=== PATIENT | female | born 1995 | race American Indian/Alaskan Native ===

== ENCOUNTER 2017-10-01 09:06 | Inpatient (IN) | payer MEDICAID ==
[2017-10-01] MEDS ORDERED: POLYCILLIN/NS 2 GM/100 ML 2 GM/100 ML BAG IV ONE (10:46)
[2017-10-01] MEDS ORDERED: PITOCin/NS 20 UNIT/1000ML DRIP 20,000 MILLIUNITS/1,000 ML BAG IV ONE (10:46)
[2017-10-01] MEDS ORDERED: MINERAL OIL ONE (10:47)
[2017-10-01] MEDS ORDERED: LACTATED RINGERS 1,000 ML ONE (10:47)
[2017-10-01 10:54] LABS: Hematocrit 35.4 % (30.3-42.9); Hemoglobin 11.5 gm/dl (10.1-14.3); Mean Platelet Volume 9.7 fl (6-12); Red Blood Count 4.58 M/mm3 (3.65-5.03); Red Cell Distribution Width 14.5 % (13.2-15.2)
[2017-10-01] MEDS ORDERED: LACTATED RINGERS 1,000 ML IV SCH ×2 (11:00→12:00)
[2017-10-01] MEDS ORDERED: POLYCILLIN/NS 2 GM/100 ML 2 GM/100 ML BAG IV SCH (11:00)
[2017-10-01] MEDS ORDERED: PITOCin/NS 20 UNIT/1000ML DRIP 20 UNITS/1,000 ML BAG IV SCH (11:00)
[2017-10-01] MEDS ORDERED: SUBLIMAZE ONE (11:11)
[2017-10-01] MEDS ORDERED: BRETHINE SUB-Q PRN (11:34)
[2017-10-01] MEDS ORDERED: XYLOCAINE 2% INFILTRATI ONE (11:34)
[2017-10-01] MEDS ORDERED: ePHEDrine SULFATE IV PRN (11:34)
[2017-10-01] MEDS ORDERED: MINERAL OIL PO PRN (11:34)
[2017-10-01] MEDS ORDERED: BRETHINE IVP PRN (11:34)
[2017-10-01] MEDS ORDERED: SUBLIMAZE IV ONE ×2 (11:40→12:00)
--- NOTE | 2017-10-01 11:41 | History and Physical Report ---
History of Present Illness Date of examination: 10/01/17 Date of admission: 10/01/17 09:30 Chief complaint: Painful contractions and rupture of membranes History of present illness: 22 yo AA fe DUSTIN 10/16/17, 37w6d (per pt) presents in spontaneous labor with SROM this am. records not available for review. Pt reports early and consistent care at [facility]. Reports positive chlamydia with neg LONNY in . She denies any medical complications, history of surgery, hypertension, GDM. States GBS is Negative. Past History Past Medical History: no pertinent history. denies: asthma Past Surgical History: no surgical history [facility] History: chlamydia (Reports treatment and Negative LONNY in ). denies: abnormal PAP smear, gonorrhea, hepatitis B, hepatitis C, herpes, HIV, syphilis, trichomonas Family/Genetic History: none Social history: no significant social history, single, lives with family, full code. denies: smoking, alcohol abuse, prescription drug abuse, IV drug use - Obstetrical History Expected Date of Delivery: 10/16/17 Actual Gestation: 37 Week(s) 6 Day(s) : 2 Para: 1 Hx # Term Pregnancies: 1 Number of Pregnancies: 0 Spontaneous Abortions: 0 Induced : 0 Number of Living Children: 1 Medications and Allergies Allergies Allergy/AdvReac Type Severity Reaction Status Date / Time No Known Allergies Allergy Unverified 12/21/15 15:37 Home Medications Medication Instructions Recorded Confirmed Last Taken Type Lidocain2.5%/Prilocai2.5% [Emla] 5 gm TP ONCE #1 tube 12/21/15 Unknown Rx Pnv No.95/Ferrous Fum/Folic AC 1 tab PO DAILY 12/21/15 12/21/15 12/20/15 23:00 History [ Vitamins Tablet] Active Meds: Active Medications Fentanyl (Sublimaze) 100 mcg IV ONCE ONE Stop: 10/01/17 12:01 Fentanyl (Sublimaze) 100 mcg IV ONCE ONE Stop: 10/01/17 11:41 Oxytocin/Sodium Chloride (Pitocin/Ns 20 Unit/1000ml Drip) 20 units in 1,000 mls @ 0 mls/hr IV DIRECT LORETA Ampicillin Sodium (Polycillin/Ns 2 Gm/100 Ml) 2 gm in 100 mls @ 100 mls/hr IV ONCE LORETA; Protocol Last Admin: 10/01/17 10:55 Dose: 100 mls/hr Lactated Ringer's (Lactated Ringers) 1,000 mls @ 125 mls/hr IV DIRECT LORETA Last Admin: 10/01/17 10:55 Dose: 125 mls/hr Review of Systems Cardiovascular: no chest pain, no shortness of breath Breasts: normal Gastrointestinal: no nausea, no vomiting, no diarrhea, no constipation Genitourinary: leakage of fluid, contractions Integumentary: no rash, no sores, no lesions - Vital Signs Vital signs: Vital Signs Pulse BP 81 119/84 10/01/17 09:35 10/01/17 09:35 Temp Pulse Resp BP Pulse Ox 97.6 F 81 16 119/84 10/01/17 10:48 10/01/17 09:35 10/01/17 10:48 10/01/17 09:35 - Physical Exam Breasts: Positive: normal Cardiovascular: Regular rate, Normal S1, Normal S2 Lungs: Positive: Clear to auscultation, Normal air movement Abdomen: Positive: normal appearance, soft, other (Gravid) Genitourinary (Female): Positive: normal external genitalia, normal perenium Vulva: both: normal Vagina: Positive: normal moisture (Large amt clear fluid noted on arrival) Uterus: Positive: enlarged (Gravid, S=D) Anus/Rectum: Positive: normal perianal skin Extremities: Positive: normal Deep Tendon Reflex Grade: Normal +2 - Obstetrical FHR: auscultation normal, category 1 Uterine Contraction Monitor Mode: External Cervical Dilatation: 8 Cervical Effacement Percentage: 90 station: -1 Uterine Contraction Frequency (min): 4-5 Uterine Contraction Pattern: Regular Uterine Tone Measurement Phase: Resting Uterine Contraction Intensity: Strong/Firm Results Result Diagrams: 10/01/17 Unknown Abnormal lab results 10/01/17 Range/Units Unknown MCV 77 L (79-97) fl MCH 25 L (28-32) pg All other labs normal. Assessment and Plan A: , DUSTIN 10/16/2017(per pt) Active labor GBS Negative per pt SROM clear fluid P: Admit to L&D Routine care GBS prophylaxis (records not available) Expect
[2017-10-01] MEDS ORDERED: BENADRYL PO PRN (12:16)
[2017-10-01] MEDS ORDERED: PHENERGAN PO PRN (12:16)
[2017-10-01] MEDS ORDERED: MILK OF MAGNESIA PO PRN (12:16)
[2017-10-01] MEDS ORDERED: TUCKS PAD TP PRN (12:16)
[2017-10-01] MEDS ORDERED: TYLENOL PO PRN (12:16)
[2017-10-01] MEDS ORDERED: ZOFRAN IV PRN (12:16)
[2017-10-01] MEDS ORDERED: DULCOLAX PR PRN (12:16)
[2017-10-01] MEDS ORDERED: LANSINOH TP PRN (12:16)
--- NOTE | 2017-10-01 12:22 | Procedure Note ---
OB Delivery Note - Delivery Date of Delivery: 10/01/17 (11:58) Surgeon: INES STEPHENS (KEN[place]) Estimated blood loss: 100cc - Vaginal Delivery presentation: vertex Delivery position: OA Intrapartum events: none Delivery induction: none Delivery monitor: external FHT, external uterine Route of delivery: (11:58) Delivery placenta: spontaneous (12:03) Delivery cord: 3 umbilical vessels Delivery laceration: 1st degree (small, left unrepaired) Anesthesia: intravenous Delivery comments: viable male , GEO position at 11:58. to mothers abdomen for skin to skin. Delayed cord clamping, cut by FOB. Cord blood collected. Spontaneous tripathi delivery of intact placenta at 12:03. 3VC. FF@U-2. Small first degree laceration left unrepaired. EBL 100ml. Mother and left in stable condition in L&D. - A at 1 minute: 8 at 5 minutes: 9 Infant Gender: Male (3294 grams, 7lbs 4oz,)
[2017-10-01] MEDS ORDERED: SODIUM CHLORIDE FLUSH SYRINGE 10 ML IV NR (13:00)
[2017-10-01] MEDS: NORCO 5/325 PO PRN ×2 (16:14→22:07)
[2017-10-01] MEDS: MOTRIN PO SCH ×2 (18:00→19:00)
[2017-10-02 01:31] LABS: Hematocrit 34.4 % (30.3-42.9); Hemoglobin 11.6 gm/dl (10.1-14.3)
[2017-10-02] MEDS: MOTRIN PO SCH ×3 (05:20→19:28)
--- NOTE | 2017-10-02 10:30 | Progress Note ---
Assessment and Plan A: PP Day #1 Stable P: Follow Routine Orders D/C Home in the AM RTO in 6 weeks Subjective - Subjective Date of service: 10/02/17 Patient reports: appetite normal, voiding normally, pain well controlled, flatus , ambulating normally : doing well Objective - Vital Signs Latest vital signs: Vital Signs Temp Pulse Resp BP BP Pulse Ox 10/02/17 08:55 97.6 F 57 L 18 97/56 98 10/02/17 05:58 18 10/02/17 00:00 98.7 F 77 18 112/69 10/01/17 23:02 70 100 10/01/17 22:57 66 98 10/01/17 22:52 78 98 10/01/17 22:47 66 96 10/01/17 22:42 67 97 10/01/17 22:37 72 99 10/01/17 22:34 70 129/80 10/01/17 22:32 71 98 10/01/17 22:27 82 98 10/01/17 22:22 86 100 10/01/17 22:17 57 L 86 10/01/17 22:12 91 H 98 10/01/17 22:11 85 78 L 10/01/17 22:07 77 99 10/01/17 22:02 75 98 10/01/17 21:57 72 96 10/01/17 19:30 98.6 F 66 18 117/78 10/01/17 16:14 16 10/01/17 14:15 97.8 F 54 L 16 103/53 10/01/17 12:47 98.1 F 16 10/01/17 10:48 97.6 F 16 Intake and Output 10/01/17 10/02/17 10/02/17 22:59 06:59 14:59 Intake Total 300 Output Total 700 Balance -700 300 Intake: Intake, Free Water 300 Output: Urine 700 Indwelling Catheter 700 Other: Total, Output Amount 700 - Exam Breasts: Present: normal Cardiovascular: Present: Regular rate Lungs: Present: Clear to auscultation, Normal air movement Abdomen: Present: normal appearance, soft, normal bowel sounds Uterus: Present: normal, firm, fundal height below umbilicus Extremities: Present: normal - Labs Labs: Abnormal lab results 10/01/17 Range/Units Unknown MCV 77 L (79-97) fl MCH 25 L (28-32) pg
--- NOTE | 2017-10-02 10:31 | Discharge Summary ---
Providers - Providers Date of Admission: 10/01/17 09:30 Date of discharge: 10/03/17 Attending physician: DARIUS HAWK MD Primary care physician: DARIUS HAWK MD Hospitalization Reason for admission: active labor Delivery: Episiotomy: none Laceration: 1st degree Other procedures: none complications: none Discharge diagnosis: IUP at term delivered [place] baby: male Condition at discharge: Good Disposition: DC-01 TO HOME OR SELFCARE Plan - Provider Discharge Summary Activity: routine Additional instructions: [] Smoking cessation referral if applicable(refer to patient education folder for contact #) [] Refer to [facility]'s [facility] Booklet Call your doctor immediately for: * Fever > 100.5 * Heavy vaginal bleeding ( >1 pad per hour) * Severe persistent headache * Shortness of breath * Reddened, hot, painful area to leg or breast * Drainage or odor from incision. * Keep incision clean and dry at all times and follow doctor's instructions regarding bathing/showering - Follow up plan Follow up: DARIUS HAWK MD [Primary Care Provider] - 6 Weeks
[2017-10-03] MEDS: MOTRIN PO SCH (04:22)
[2017-10-03] MEDS ORDERED: BOOSTRIX IM ONE (06:00)
[2017-10-03 13:44] VITALS: BP 112/64
== END 2017-10-03 12:30 | disposition home or self-care (01) | DRG 775 ==
LOC: TRG 09:06 → LD 09:30 → OB 14:58
PROVIDERS: ADMIT Obstetrics & Gynecology; ATTEND Obstetrics & Gynecology
PROC: 10E0XZZ Delivery of Products of Conception, External Approach (ICD-10-PCS; principal; 2017-10-01)
PROC: 3E0234Z Introduction of Serum, Toxoid and Vaccine into Muscle, Percutaneous Approach (ICD-10-PCS; 2017-10-03)
DX: O70.0 First degree perineal laceration during delivery (principal); Z3A.37 37 weeks gestation of pregnancy; Z37.0 Single live birth; Z23 Encounter for immunization
CPT/HCPCS: 36415; 85014; 85018; 85027; 86592; 86850; 86900; 86901; 87591; 90471; 90715; 99211; A6250; G0463; J0290; J2590; J3010; J7120

== ENCOUNTER 2020-01-14 01:23 | Inpatient (IN) | payer MEDICAID ==
[2020-01-14] MEDS ORDERED: TERBUTALINE 1 MG/1 ML INJ IVP PRN (01:39)
[2020-01-14] MEDS ORDERED: ePHEDrine SULFATE 50 MG/1 ML INJ IV PRN (01:39)
[2020-01-14] MEDS ORDERED: LIDOCAINE (2%) 20 MG/1 ML VIAL 20 ML MDV INFILTRATI ONE (01:39)
[2020-01-14] MEDS ORDERED: MINERAL OIL 30 ML ORAL LIQD PO PRN (01:39)
[2020-01-14] MEDS ORDERED: AMPICILLIN/NS 2 GM/100 ML 2 GM/100 ML BAG IV ONE (01:39)
[2020-01-14] MEDS ORDERED: TERBUTALINE 1 MG/1 ML INJ SUB-Q PRN (01:39)
[2020-01-14] MEDS ORDERED: LACTATED RINGERS 1,000 ML ONE (01:40)
[2020-01-14] MEDS ORDERED: OXYTOCIN 10 UNIT/1 ML INJ ONE (01:49)
[2020-01-14] MEDS ORDERED: OXYTOCIN 20 UNIT/1000ML DRIP 20 UNITS/1,000 ML BAG IV SCH ×2 (02:00→03:00)
[2020-01-14] MEDS ORDERED: LACTATED RINGERS 1,000 ML IV SCH (02:00)
--- NOTE | 2020-01-14 02:40 | History and Physical Report ---
History of Present Illness Date of examination: 01/14/20 Date of admission: 01/14/20 01:47 Chief complaint: contractions History of present illness: 24 yo at 39w0d with PNC at [facility], otherwise uncomplicated, presenting with contractions and rupture of membranes. Thin meconium. + movements. No vaginal bleeding. No PIH symptoms. Past History Past Medical History: no pertinent history Past Surgical History: no surgical history Family/Genetic History: none Social history: no significant social history - Obstetrical History : 3 Para: 2 Hx # Term Pregnancies: 2 Number of Living Children: 2 Medications and Allergies Allergies Allergy/AdvReac Type Severity Reaction Status Date / Time No Known Allergies Allergy Unverified 12/21/15 15:37 Home Medications Medication Instructions Recorded Confirmed Last Taken Type Lidocain2.5%/Prilocai2.5% [Emla] 5 gm TP ONCE #1 tube 12/21/15 10/01/17 Unknown Rx Pnv No.95/Ferrous Fum/Folic AC 1 tab PO DAILY 12/21/15 10/01/17 1 Day Ago History [ Vitamins Tablet] ~09/30/17 Ibuprofen [Motrin] 800 mg PO Q8HR #30 tablet 04/05/18 Unknown Rx Sulfamethoxazole/Trimethoprim 1 each PO BID #20 tablet 04/05/18 Unknown Rx [Bactrim DS TAB] Active Meds: Active Medications Ephedrine Sulfate (Ephedrine Sulfate) 10 mg IV Q2M PRN PRN Reason: Hypotension Oxytocin/Sodium Chloride (Pitocin/Ns 20 Unit/1000ml Drip) 20 units in 1,000 mls @ 125 mls/hr IV DIRECT LORETA Last Admin: 01/14/20 02:16 Dose: 125 mls/hr Documented by: Lactated Ringer's (Lactated Ringers) 1,000 mls @ 125 mls/hr IV DIRECT LORETA Ampicillin Sodium (Ampicillin/Ns 1 Gm/50 Ml) 1 gm in 50 mls @ 100 mls/hr IV Q4HR LORETA; Protocol Mineral Oil (Mineral Oil) 30 ml PO QHS PRN PRN Reason: Constipation Last Admin: 01/14/20 02:26 Dose: 30 ml Documented by: Terbutaline Sulfate (Brethine) 0.25 mg SUB-Q ONCE PRN PRN Reason: Hyperstimulation/Hypertonicity Terbutaline Sulfate (Brethine) 0.25 mg IVP ONCE PRN PRN Reason: Hyperstimulation/Hypertonicity Review of Systems All systems: negative (expect HPI) - Vital Signs Vital signs: Vital Signs Temp Pulse BP Pulse Ox 97.9 F 88 121/75 100 01/14/20 01:43 01/14/20 01:43 01/14/20 01:43 01/14/20 01:43 Temp Pulse Resp BP Pulse Ox 97.9 F 101 H 121/75 97 01/14/20 01:43 01/14/20 02:02 01/14/20 01:43 01/14/20 02:02 - Physical Exam Breasts: Positive: deferred Cardiovascular: Regular rate Abdomen: Positive: normal appearance, other (gravid) Genitourinary (Female): Positive: normal external genitalia Vulva: both: normal Vagina: Positive: normal moisture Uterus: Positive: other (gravid) - Obstetrical FHR: category 1 Uterine Contraction Monitor Mode: External Cervical Dilatation: 9 Cervical Effacement Percentage: 90 station: +1 Uterine Contraction Pattern: Regular Uterine Contraction Intensity: Strong/Firm Results All other labs normal. Assessment and Plan - Patient Problems (1) Active labor at term Current Visit: No Status: Acute Plan to address problem: --Augmentation of labor as indicated --Obtain New OB labs given no records --Amp given GBS unknown --Anticipate
[2020-01-14] MEDS ORDERED: PROMETHAZINE 25 MG TAB PO PRN (02:45)
[2020-01-14] MEDS ORDERED: PROMETHAZINE 25 MG RECT SUPP PR PRN (02:45)
[2020-01-14] MEDS ORDERED: oxyCODONE /ACETAMINOPHEN 5-325MG TAB PO PRN (02:45)
[2020-01-14] MEDS ORDERED: HYDROCORTISONE 25 MG RECTAL SUPP PR PRN (02:45)
[2020-01-14] MEDS ORDERED: LANOLIN/ZINC/DIMETHICONE (LANSINOH) 7 GM TP PRN (02:45)
[2020-01-14] MEDS ORDERED: MAGNESIUM HYDROXIDE (MOM) ORAL LIQD UDC PO PRN (02:45)
[2020-01-14] MEDS ORDERED: WITCH HAZEL/ GLYCERIN PAD TP PRN (02:45)
[2020-01-14] MEDS ORDERED: diphenhydrAMINE 25 MG CAP PO PRN (02:45)
[2020-01-14] MEDS ORDERED: ONDANSETRON 4 MG/2 ML INJ IV PRN (02:45)
[2020-01-14] MEDS ORDERED: ACETAMINOPHEN 325 MG TAB PO PRN (02:45)
--- NOTE | 2020-01-14 02:51 | Procedure Note ---
OB Delivery Note - Delivery Date of Delivery: 01/14/20 Surgeon: MARIA DEL CARMEN TOMLIN JR Estimated blood loss: 200cc - Vaginal Delivery position: OA Intrapartum events: none Delivery induction: AROM Delivery augmentation: rupture of membranes Delivery monitor: external FHT Route of delivery: Delivery placenta: spontaneous Episiotomy: none Delivery laceration: 2nd degree Delivery repair: chromic Delivery comments: Girl, 8/9 APGARS, 2975g to , EBL 200 cc, Lac 2nd degree perineal repaired with lidocaine and 2-0 chromic - A at 1 minute: 8 at 5 minutes: 9 Infant Gender: Female
[2020-01-14 03:42] LABS: Hematocrit 30.1 % (30.3-42.9); Hemoglobin 9.7 gm/dl (10.1-14.3); Mean Corpuscular HGB Conc 32 % (30-34); Mean Corpuscular Volume 71 fl (79-97); Platelet Count 180 K/mm3 (140-440); Red Blood Count 4.26 M/mm3 (3.65-5.03); Red Cell Distribution Width 17.4 % (13.2-15.2)
[2020-01-14 03:43] LABS: Hematocrit 29.8 % (30.3-42.9); Hemoglobin 9.5 gm/dl (10.1-14.3)
[2020-01-14] MEDS: IBUPROFEN 600 MG TAB PO SCH ×3 (05:17→17:23)
[2020-01-14] MEDS: SENNOSIDES/DOCUSATE SODIUM 8.6/50 MG TAB PO SCH ×2 (05:17→17:25)
[2020-01-14] MEDS ORDERED: AMPICILLIN/NS 1 GM/50 ML 1 GM/50 ML BAG IV SCH (05:40)
[2020-01-14] MEDS: DOCUSATE SODIUM 100 MG CAP PO SCH ×2 (10:36→21:45)
[2020-01-15] MEDS: IBUPROFEN 600 MG TAB PO SCH ×3 (00:06→11:13)
[2020-01-15] MEDS: SENNOSIDES/DOCUSATE SODIUM 8.6/50 MG TAB PO SCH (05:22)
[2020-01-15] MEDS ORDERED: DIPHtheria,PERTUSSIS(ACELL),TETANUS VACCINE/PF 0.5 ML VIAL IM ONE (06:00)
[2020-01-15] MEDS ORDERED: FERROUS SULFATE 325 MG TAB PO SCH (10:00)
[2020-01-15] MEDS ORDERED: medroxyPROGESTERone ACETATE 150 MG/ML SYRINGE IM NR (10:32)
--- NOTE | 2020-01-15 10:32 | Progress Note ---
Assessment and Plan A: PP Day #1 Asymptomatic Anemia P: Follow Routine Orders FeSO4 325mg PO BID Depo Provera 150mg IM prior to discharge D/C home in the AM RTO in 6 Weeks Subjective - Subjective Date of service: 01/15/20 Patient reports: appetite normal, voiding normally, pain well controlled, flatus, bowel movement, ambulating normally : doing well, bottle feeding (and ) Objective - Vital Signs Latest vital signs: Vital Signs Temp Pulse Resp BP BP Pulse Ox 01/15/20 08:51 98.0 F 49 L 18 102/61 99 01/15/20 06:22 18 01/15/20 05:22 18 01/15/20 01:06 18 01/15/20 00:06 18 01/15/20 00:00 98.8 F 61 18 105/68 01/14/20 19:30 98.6 F 69 16 112/70 01/14/20 15:51 98.4 F 61 20 106/68 100 01/14/20 12:15 97.9 F 56 L 20 108/63 99 Intake and Output 01/14/20 01/15/20 01/15/20 22:59 06:59 14:59 Intake Total 120 240 Balance 120 240 Intake: Oral 120 240 Other: Total, Intake Amount 120 240 # Voids Void 1 1 - Exam Breasts: Present: normal Cardiovascular: Present: Regular rate Lungs: Present: Clear to auscultation, Normal air movement Abdomen: Present: normal appearance, soft, normal bowel sounds Uterus: Present: normal, firm, fundal height below umbilicus Extremities: Present: normal
--- NOTE | 2020-01-15 10:34 | Discharge Summary ---
Providers - Providers Date of Admission: 01/14/20 01:47 Date of discharge: 01/16/20 Attending physician: MARIA DEL CARMEN TOMLIN JR, MD Primary care physician: MARIA DEL CARMEN TOMLIN JR, MD Hospitalization Reason for admission: active labor, rupture of membranes Delivery: Episiotomy: none Laceration: 2nd degree Other procedures: none complications: none Discharge diagnosis: IUP at term delivered baby: female Condition at discharge: Good Disposition: DC-01 TO HOME OR SELFCARE Plan - Provider Discharge Summary Activity: routine, no sex for 6 weeks, no heavy lifting 4 weeks, no strenuous exercise Diet: routine Instructions: routine Additional instructions: [] Smoking cessation referral if applicable(refer to patient education folder for contact #) [] Refer to [facility] Booklet Call your doctor immediately for: * Fever > 100.5 * Heavy vaginal bleeding ( >1 pad per hour) * Severe persistent headache * Shortness of breath * Reddened, hot, painful area to leg or breast * Drainage or odor from incision. * Keep incision clean and dry at all times and follow doctor's instructions regarding bathing/showering - Follow up plan Follow up: MARIA DEL CARMEN TOMLIN JR, MD [Primary Care Provider] - 6 Weeks
[2020-01-15] MEDS: DOCUSATE SODIUM 100 MG CAP PO SCH (11:12)
[2020-01-15 18:24] VITALS: BP 115/63
== END 2020-01-15 17:00 | disposition home or self-care (01) | DRG 775 ==
LOC: TRG 01:23 → APU 01:24 → TRG 01:46 → LD 01:47 → OB 04:40
PROVIDERS: ADMIT Obstetrics & Gynecology; ATTEND Obstetrics & Gynecology
PROC: 10E0XZZ Delivery of Products of Conception, External Approach (ICD-10-PCS; principal; 2020-01-14)
PROC: 0KQM0ZZ Repair Perineum Muscle, Open Approach (ICD-10-PCS; 2020-01-14)
PROC: 10907ZC Drainage of Amniotic Fluid, Therapeutic from Products of Conception, Via Natural or Artificial Opening (ICD-10-PCS; 2020-01-14)
DX: O99.02 Anemia complicating childbirth (principal); Z3A.39 39 weeks gestation of pregnancy; Z37.0 Single live birth; O70.1 Second degree perineal laceration during delivery; D64.9 Anemia, unspecified
CPT/HCPCS: 36415; 85014; 85018; 85027; 86592; 86706; 86762; 86850; 86900; 86901; 87806; 90471; 90715; G0378; J0290; J1050; J2590; J7120

== ENCOUNTER 2021-07-17 15:02 | Observation (INO) | payer MEDICAID ==
[2021-07-17] MEDS ORDERED: SODIUM CHLORIDE 0.9% 1000 ML 1,000 ML IV ONE (15:11)
[2021-07-17 16:00] LABS: Basophils # (Auto) 0.1 K/mm3 (0.0-0.1); Basophils % (Auto) 0.5 % (0.0-1.8); Eosinophils % (Auto) 0.4 % (0.0-4.3); Hematocrit 22.8 % (30.3-42.9); Hemoglobin 7.4 gm/dl (10.1-14.3); Lymphocytes # (Auto) 1.5 K/mm3 (1.2-5.4); Lymphocytes % (Auto) 15.1 % (13.4-35.0); Mean Corpuscular HGB Conc 32 % (30-34); Mean Corpuscular Volume 74 fl (79-97); Monocytes # (Auto) 0.3 K/mm3 (0.0-0.8); Platelet Count 198 K/mm3 (140-440)
[2021-07-17 16:01] LABS: Red Cell Distribution Width 20.8 % (13.2-15.2)
[2021-07-17 16:09] LABS: INR 0.98 (0.87-1.13)
[2021-07-17 16:20] LABS: Blood Urea Nitrogen 10 mg/dL (7-17); Calcium 8.2 mg/dL (8.4-10.2); Hemolysis Index 6
[2021-07-17 16:21] LABS: BUN/Creatinine Ratio 20
--- NOTE | 2021-07-17 18:57 | Emergency Department Report ---
ED Female HPI - General Chief complaint: Vaginal Bleeding Stated complaint: HEMORRHAGIC SHOCK Time Seen by Provider: 07/17/21 15:11 Source: patient, EMS Mode of arrival: Stretcher Limitations: No Limitations - History of Present Illness MD Complaint: vaginal bleeding -: Gradual, days(s) Location: suprapubic Radiation: non-radiating Severity scale (0 -10): 3 Quality: aching Consistency: constant - Related Data Home Medications Medication Instructions Recorded Confirmed Last Taken No Known Home Medications [No 01/14/20 01/14/20 Unknown Reported Home Medications] Allergies Allergy/AdvReac Type Severity Reaction Status Date / Time No Known Allergies Allergy Unverified 12/21/15 15:37 ED Review of Systems ROS: Stated complaint: HEMORRHAGIC SHOCK Other details as noted in HPI Constitutional: denies: chills, fever Eyes: denies: eye pain, eye discharge, vision change ENT: denies: ear pain, throat pain Respiratory: denies: cough, shortness of breath, wheezing Cardiovascular: denies: chest pain, palpitations Endocrine: no symptoms reported Gastrointestinal: denies: abdominal pain, nausea, diarrhea Genitourinary: denies: urgency, dysuria, discharge Musculoskeletal: denies: back pain, joint swelling, arthralgia Skin: denies: rash, lesions Neurological: denies: headache, weakness, paresthesias Psychiatric: denies: anxiety, depression Hematological/Lymphatic: denies: easy bleeding, easy bruising ED Past Medical Hx - Past Medical History Hx Hypertension: No Hx Congestive Heart Failure: No Hx Diabetes: No Hx Deep Vein Thrombosis: No Hx Renal Disease: No Hx Sickle Cell Disease: No Hx Seizures: No Hx Asthma: No Hx COPD: No Hx HIV: No - Social History Smoking Status: Unknown if ever smoked - Medications Home Medications: Home Medications Medication Instructions Recorded Confirmed Last Taken Type No Known Home Medications [No 01/14/20 01/14/20 Unknown History Reported Home Medications] ED Physical Exam - General Limitations: No Limitations General appearance: in no apparent distress, other (thin) - Head Head exam: Present: atraumatic, normocephalic - Eye Eye exam: Present: other (pale ) - ENT ENT exam: Present: mucous membranes moist - Neck Neck exam: Present: normal inspection - Respiratory Respiratory exam: Present: normal lung sounds bilaterally. Absent: respiratory distress - Cardiovascular Cardiovascular Exam: Present: regular rate, normal rhythm. Absent: systolic murmur, diastolic murmur, rubs, gallop - GI/Abdominal GI/Abdominal exam: Present: soft, normal bowel sounds - External exam: Present: normal external exam, bleeding Speculum exam: Present: vaginal bleeding - Extremities Exam Extremities exam: Present: normal inspection - Back Exam Back exam: Present: normal inspection - Neurological Exam Neurological exam: Present: alert, oriented X3 - Psychiatric Psychiatric exam: Present: normal affect, normal mood - Skin Skin exam: Present: warm, dry, intact, normal color. Absent: rash ED Course Vital Signs 07/17/21 07/17/21 07/17/21 15:08 15:32 15:45 Pulse Rate 80 95 H 92 H Respiratory 16 13 Rate Blood Pressure 109/56 Blood Pressure 117/57 [Right] O2 Sat by Pulse 99 100 Oximetry 07/17/21 16:01 Pulse Rate 70 Respiratory 30 H Rate Blood Pressure 109/56 Blood Pressure [Right] O2 Sat by Pulse 100 Oximetry ED Medical Decision Making - Lab Data Result diagrams: 07/17/21 15:41 07/17/21 15:41 Critical care attestation.: If time is entered above; I have spent that time in minutes in the direct care of this critically ill patient, excluding procedure time. ED Disposition Clinical Impression: Incomplete Disposition: 09 ADMITTED INPATIENT Is pt being admited?: Yes Does the pt Need Aspirin: No Condition: Fair Referrals: SAHARA ABDALLA MD [Primary Care Provider] - 3-5 Days
[2021-07-17] MEDS ORDERED: SODIUM CHLORIDE 0.9% 500 ML 500 ML IV ONE (19:00)
--- NOTE | 2021-07-17 19:05 | Ultrasound Report ---
ULTRASOUND OBSTETRIC INDICATION / CLINICAL INFORMATION: Vaginal bleeding. Clinical Gestational Age (GA) in weeks, days: Unknown TECHNIQUE: Transabdominal. COMPARISON: None available. FINDINGS: GESTATIONAL SAC: Not seen YOLK SAC: Not seen EMBRYO/FETUS: Not seen ADNEXA: No significant abnormality. FREE FLUID: None. ADDITIONAL FINDINGS: The endometrium is slightly thickened and hypervascular. IMPRESSION: 1. No evidence of intrauterine gestation. In the presence of a positive test this is a preg frank of unknown location in the differential includes very early versus missed ve rsus ectopic. Recommend repeat ultrasound in 7-10 days. If clinically the patient is status post miss ed then the thickened and heterogeneous endometrium suggests possible retained products of c onception. Signer Name: Jose Amezcua DO Signed: 07/17/2021 7:01 PM Workstation Name: [id number]
[2021-07-17] MEDS ORDERED: ACETAMINOPHEN 325 MG TAB PO PRN (21:52)
[2021-07-17] MEDS ORDERED: ONDANSETRON 4 MG/2 ML INJ IV PRN (21:53)
[2021-07-17] MEDS ORDERED: IBUPROFEN 800 MG TAB PO PRN (21:53)
[2021-07-17] MEDS ORDERED: oxyCODONE /ACETAMINOPHEN 5-325MG TAB PO PRN (21:53)
[2021-07-17] MEDS ORDERED: MORPHINE 4 MG/1 ML INJ IV PRN (21:53)
[2021-07-18] MEDS: D5W/LACTATED RINGERS 1,000 ML IV SCH ×2 (00:07→06:29)
[2021-07-18 04:49] LABS: Hematocrit 22.8 % (30.3-42.9); Hemoglobin 7.1 gm/dl (10.1-14.3)
--- NOTE | 2021-07-18 08:32 | Short Stay Summary ---
Short Stay Documentation Date of service: 07/18/21 Narrative H&P: 26-year-old -0-1-3 who is 6 weeks status post termination. The patient reports having excessive vaginal bleeding which was her reason for presentation to the emergency department. At presentation the patient was hypotensive and anemic. She was transfused 1 unit of packed red blood cells in the emergency department. Pelvic ultrasound demonstrated findings of retained products of conception. - History Principal diagnosis: Retained products of conception Past Medical History: No medical history Past Surgical History: No surgical history Social history: single - Allergies and Medications Current Medications: Allergies No Known Allergies Allergy (Unverified 12/21/15 15:37) Home Medications Medication Instructions Recorded Confirmed Last Taken Type No Known Home Medications [No 01/14/20 01/14/20 Unknown History Reported Home Medications] Active Medications Acetaminophen (Acetaminophen 325 Mg Tab) 650 mg PO Q4H PRN PRN Reason: Pain, Mild (1-3) Dextrose/Lactated Ringer's (D5lr) 1,000 mls @ 125 mls/hr IV DIRECT LORETA Last Admin: 07/18/21 06:29 Dose: 125 mls/hr Ibuprofen (Ibuprofen 800 Mg Tab) 800 mg PO Q8H PRN PRN Reason: Pain, Moderate (4-6) Morphine Sulfate (Morphine 4 Mg/1 Ml Inj) 4 mg IV Q4H PRN PRN Reason: Pain , Severe (7-10) Ondansetron HCl (Ondansetron 4 Mg/2 Ml Inj) 4 mg IV Q8H PRN PRN Reason: Nausea And Vomiting Oxycodone/Acetaminophen (Oxycodone /Acetaminophen 5-325mg Tab) 1 tab PO Q6H PRN PRN Reason: Pain, Moderate (4-6) - Physical exam General appearance: no acute distress Integumentary: no rash HEENT: Atraumatic Lungs: Clear to auscultation Breasts: deferred Heart: Regular rate Gastrointestinal: normal Female Genitourinary: deferred Rectal Exam: deferred - Brief post op/procedure progress note Date of procedure: 07/18/21 Pre-op diagnosis: Incomplete Post-op diagnosis: same Procedure: Suction dilatation and curettage Anesthesia: MAC Surgeon: TALISHA VAZ Estimated blood loss: other (150 mL) Pathology: list (Products of conception) Specimen disposition: to lab Condition: stable - Hospital course Hospital course: The patient was admitted through the emergency department with excessive vaginal bleeding and anemia. Pelvic ultrasound demonstrated evidence of a thickened endometrium of 2.0 cm consistent with retained products of conception. The patient had a prior history of a termination. - Disposition Condition at discharge: Good Disposition: 01 HOME / SELF CARE / HOMELESS Short Stay Discharge Plan Activity: other (Pelvic rest for 1 week) Diet: regular Additional Instructions: Schedule follow-up with Dr. Vaz in 1 to 2 weeks [facility] [facility] [address] [place] [address]. [place] [address] [phone] Please call the office to schedule postoperative appointment Prescriptions: Ibuprofen [Motrin] 800 mg PO Q8HR PRN #30 tablet PRN Reason: Pain , Severe (7-10) HYDROcodone/APAP 5-325 [[place] 5/325] 1 each PO Q6HR PRN #15 tablet PRN Reason: Pain
[2021-07-18] MEDS ORDERED: LIDOCAINE MPF (2%) 20 MG/1 ML VIAL 5 ML ONE (08:40)
[2021-07-18] MEDS ORDERED: fentaNYL 100 MCG/2 ML INJ ONE (08:41)
[2021-07-18] MEDS ORDERED: propofoL 200 MG/20 ML VIAL IV ONE (08:41)
[2021-07-18] MEDS ORDERED: MIDAZOLAM 2 MG/2 ML INJ ONE (08:41)
[2021-07-18] MEDS ORDERED: SILVER NITRATE APPLICATOR 1 EA TP ONE (08:50)
--- NOTE | 2021-07-18 08:50 | Anesthesia Consultation ---
Anesthesia Consult and Med Hx Date of service: 07/18/21 - Airway Anesthetic Teeth Evaluation: Good ROM Head & Neck: Adequate Mental/Hyoid Distance: Adequate Mallampati Class: Class II Intubation Access Assessment: Probably Good - Pulmonary Exam CTA: Yes - Cardiac Exam Cardiac Exam: RRR - Pre-Operative Health Status ASA Pre-Surgery Classification: ASA1, Emergency Proposed Anesthetic Plan: General - Pulmonary Hx Smoking: No Hx Asthma: No COPD: No Hx Pneumonia: No - Cardiovascular System Hx Hypertension: No - Central Nervous System Hx Neuromuscular Disorder: No Hx Seizures: No Hx Psychiatric Problems: No - Gastrointestinal Hx Gastroesophageal Reflux Disease: No - Endocrine Hx Renal Disease: No Hx End Stage Renal Disease: No Hx Liver Disease: No Hx Non-Insulin Dependent Diabetes: No Hx Thyroid Disease: No - Hematic Hx Anemia: Yes Hx Sickle Cell Disease: No - Other Systems Hx Alcohol Use: No Hx Substance Use: Yes (hx of marijuana use ) Hx Cancer: No Hx Obesity: No - Additional Comments Anesthesia Medical History Comments: No hx of anesthesia complications
[2021-07-18] MEDS ORDERED: METHYLERGONOVINE MALEATE 0.2 MG/ML VIAL IM ONE ×2 (08:51→09:20)
--- NOTE | 2021-07-18 08:51 | Anesthesia Day of Surgery ---
Anesthesia Day of Surgery - Day of Surgery Patient Examined: Yes Patient H&P Reviewed: Yes Patient is NPO: Yes
[2021-07-18] MEDS ORDERED: ONDANSETRON 4 MG/2 ML INJ IV PRN (09:00)
[2021-07-18] MEDS ORDERED: HYDROmorphone 1 MG/1 ML INJ IV PRN ×2 (09:00)
[2021-07-18 09:06] LABS: HCG Qualitative,Urine Positive (Negative)
[2021-07-18 09:09] LABS: Bilirubin,Urine NEG (Negative); Blood,Urine LG (Negative); Color,Urine Yellow (Yellow); Urobilinogen,Urine < 2.0 mg/dL (<2.0)
[2021-07-18 09:15] LABS: Mucus,Urine FEW /HPF; RBC,Urine > 182.0 /HPF (0.0-6.0)
--- NOTE | 2021-07-18 09:38 | Electrocardiograph Report ---
[facility] Test Date: 2021-07-17 Test Time: 15:27:03 Pat Name: SHAMAR MCCLAIN Department: Room: 2106 1 Gender: F Business Continuity Coordinator: ALEX : 1995 Requested By: TALISHA VAZ Order Number: [id number] Reading MD: Dio Ramsey Measurements Intervals [place] Rate: 92 P: 81 AR: 129 QRS: 89 QRSD: 71 T: 11 QT: 388 QTc: 481 Interpretive Statements Sinus rhythm No previous ECG available for comparison Electronically Signed On 07-18-2021 9:38:20 EST by Dio Ramsey
--- NOTE | 2021-07-18 09:46 | Operative Report ---
Operative Report Operative Report: Date of surgery: July 18, 2021 Preoperative diagnosis: Incomplete Postoperative diagnosis: Same as above Procedure: Suction dilatation and curettage Surgeon: Latoya Arriaza M.D. Anesthesia: Laryngeal mask anesthesia Estimated blood loss: 150 mL Findings: Retained products of conception Indication: 26-year-old -0-1-3 status post a termination with findings of retained products of conception. Procedure: The patient was taken to the operating room and given general endotracheal anesthesia without complication. The patient is prepped and draped in a normal sterile fashion. A bivalve speculum was placed in the patient's vagina and a single-tooth tenaculums placed on the anterior lip of the cervix. The uterine cavity was then sounded. The cervical os was then dilated with graduated dilators. A number 10 [place] curved cannula was placed to suction and found to be adequate. The cannula was then gently inserted into the dilated cervical os. Evacuation of the uterine contents were performed. Sharp curettage and endometrial surface was performed until cry was achieved. The cannula was then gently reinserted into the uterine cavity to evacuate any additional contents. After removal of the cannula there was no evidence of any active bleeding. The vaginal instruments were then removed atraumatically. The patient was then successfully extubated and taken to the recovery room in stable condition. All sponge laps and needle counts were correct x2. Pathology consisted of products of conception.
[2021-07-18] MEDS ORDERED: SODIUM CHLORIDE 0.9% IRR 1,500 ML BOTTLE IR ONE (10:00)
--- NOTE | 2021-07-18 10:40 | Post Anesthesia Evaluation ---
- Post Anesthesia Evaluation Patient Participated: Yes Airway Patent: Yes Stable Respiratory Function: Yes Nausea/Vomiting: No Temp > 96.8F: Yes Pain Manageable: Yes Adequeate Hydration: Yes Anesthesia Complications: No Block Receding Appropriately: Not Applicable Patient on Ventilator: No
[2021-07-18 14:24] VITALS: BP 106/64
== END 2021-07-18 14:15 | disposition home or self-care (01) ==
LOC: ED 15:02 → OB 21:52
PROVIDERS: ADMIT Obstetrics & Gynecology; ATTEND Obstetrics & Gynecology
DX: O03.4 Incomplete spontaneous abortion without complication (principal); I95.9 Hypotension, unspecified; Z79.899 Other long term (current) drug therapy; Z98.890 Other specified postprocedural states
CPT/HCPCS: 36415; 36430; 59812; 76817; 80048; 81001; 81025; 84702; 85014; 85018; 85025; 85610; 86850; 86900; 86901; 86920; 87086; 88305; 93005; 93010; 96361; 96374; 99285; G0378; J2210; J2250; J2405; J2704; J3010; J3490; J7030; J7040; J7121; P9016; J7060; J7120; Q0162